=== PATIENT | female | born 1945 | race Caucasian/White ===

== ENCOUNTER 2018-10-01 10:40 | Emergency (ER) | payer MEDICARE, OTHER ==
[2018-10-01 10:46] VITALS: TEMP 98.3
--- NOTE | 2018-10-01 10:56 | ED ---
Recheck HPI - General Chief Complaint: Recheck/Abnormal Lab/Rx Stated Complaint: Chest/arm pain Time Seen by Provider: 10/01/18 10:55 Source: patient, RN notes reviewed, old records reviewed Mode of arrival: ambulatory Limitations: no limitations - History of Present Illness Initial Comments: This is a 73-year-old female to the ER for evaluation. Patient presents today for evaluation regards to abnormal lab result. Low hemoglobin. Patient also admits to having chest pain last night throughout the night that lasted for about 20-30 minutes. Patient denies any fever cough or congestion no lightheadedness dizziness or weakness MD Complaint: abnormal lab -: unknown Returns Today for: Called Because of Abnormal Lab/Test Symptoms Since Prior Visit: no new symptoms Context: called for abnormal lab result Associated Symptoms: none Treatments Prior to Arrival: other - Related Data Home Medications Medication Instructions Recorded Confirmed Aspirin 81 mg PO DAILY 03/22/15 10/01/18 Isosorbide Mononitrate ER [Imdur] 30 mg PO DAILY 10/01/18 10/01/18 Levothyroxine Sodium 112 mcg PO DAILY 10/01/18 10/01/18 Previous Rx's Medication Instructions Recorded Clopidogrel [Plavix] 75 mg PO DAILY #30 tab 03/23/15 Nitroglycerin Sl Tabs [Nitrostat] 0.4 mg SUBLINGUAL Q5M PRN #25 tab 03/23/15 Allergies Allergy/AdvReac Type Severity Reaction Status Date / Time Iodinated Contrast- Oral and Allergy Unknown Verified 10/01/18 11:12 IV Dye [Iodinated Contrast Media - IV Dye] niacin Allergy Rash/Hives Verified 10/01/18 11:12 ketorolac [From Toradol] AdvReac Vomiting Verified 10/01/18 11:12 Review of Systems ROS Statement: Those systems with pertinent positive or pertinent negative responses have been documented in the HPI. ROS Other: All systems not noted in ROS Statement are negative. Past Medical History Past Medical History: Coronary Artery Disease (CAD), Chest Pain / Angina, CVA/ TIA, Myocardial Infarction (NM) Last Myocardial Infarction Date:: unknown History of Any Multi-Drug Resistant Organisms: None Reported Past Surgical History: Coronary Bypass/CABG, Heart Catheterization, Heart Catheterization With Stent Additional Past Surgical History / Comment(s): Stents x8 cabg 1998 Past Anesthesia/Blood Transfusion Reactions: No Reported Reaction Date of Last Stent Placement:: unknown Past Psychological History: No Psychological Hx Reported Smoking Status: Current every day smoker Past Alcohol Use History: None Reported Past Drug Use History: None Reported - Past Family History Mother Family Medical History: Coronary Artery Disease (CAD), CVA/TIA Father Family Medical History: Coronary Artery Disease (CAD), CVA/TIA General Exam Limitations: no limitations General appearance: alert, in no apparent distress Head exam: Present: atraumatic, normocephalic, normal inspection Eye exam: Present: normal appearance, PERRL, EOMI. Absent: scleral icterus, conjunctival injection, periorbital swelling ENT exam: Present: normal exam, mucous membranes moist Neck exam: Present: normal inspection. Absent: tenderness, meningismus, lymphadenopathy Respiratory exam: Present: normal lung sounds bilaterally. Absent: respiratory distress, wheezes, rales, rhonchi, stridor Cardiovascular Exam: Present: regular rate, normal rhythm, normal heart sounds. Absent: systolic murmur, diastolic murmur, rubs, gallop, clicks GI/Abdominal exam: Present: soft, normal bowel sounds. Absent: distended, tenderness, guarding, rebound, rigid Extremities exam: Present: normal inspection, full ROM, normal capillary refill. Absent: tenderness, pedal edema, joint swelling, calf tenderness Back exam: Present: normal inspection Neurological exam: Present: alert, oriented X3, CN II-XII intact Psychiatric exam: Present: normal affect, normal mood Skin exam: Present: warm, dry, intact, normal color. Absent: rash Course Vital Signs 10/01/18 10/01/18 10/01/18 10:44 12:00 12:30 Temperature 98.3 F Pulse Rate 90 86 78 Respiratory 18 18 18 Rate Blood Pressure 96/65 120/72 109/66 O2 Sat by Pulse 99 Oximetry 10/01/18 10/01/18 10/01/18 13:00 14:00 14:30 Temperature Pulse Rate 78 84 82 Respiratory 18 18 18 Rate Blood Pressure 124/71 143/85 121/76 O2 Sat by Pulse Oximetry 10/01/18 10/01/18 10/01/18 15:00 15:30 16:00 Temperature Pulse Rate 82 85 75 Respiratory 18 18 18 Rate Blood Pressure 128/86 143/95 111/76 O2 Sat by Pulse Oximetry 10/01/18 10/01/18 16:22 16:30 Temperature Pulse Rate 87 Respiratory 20 Rate Blood Pressure 138/81 138/81 O2 Sat by Pulse Oximetry - Reevaluation(s) Reevaluation #1: Medical record is reviewed Reevaluation #2: Patient discussed at length regarding lab results, no need for transfusion and mildly elevated troponin with recent history of chest pain. Patient states her chest is completely resolved, risks of leaving without further cardiac evaluation is given, patient states she has had 11 heart attacks 11 stents and does not want stay in the hospital Medical Decision Making - Medical Decision Making 73 female the ER for evaluation. Patient resents today for evaluation regarding low hemoglobin. Patient also noted chest pain last night. Patient did have mildly elevated troponin here in the ER will not clinically significant was repeated with mild elevation from prior patient is continued refused to stay in the hospital at this time - Lab Data Result diagrams: 10/01/18 12:24 10/01/18 12:24 Lab Results 10/01/18 10/01/18 10/01/18 Range/Units 12:24 12:24 12:24 WBC 4.9 (3.8-10.6) k/uL RBC 2.80 L (3.80-5.40) m/uL Hgb 8.2 L (11.4-16.0) gm/dL Hct 25.9 L (34.0-46.0) % MCV 92.5 (80.0-100.0) fL MCH 29.3 (25.0-35.0) pg MCHC 31.7 (31.0-37.0) g/dL RDW 14.8 (11.5-15.5) % Plt Count 302 (150-450) k/uL Neutrophils % (Manual) 73 % Lymphocytes % (Manual) 16 % Monocytes % (Manual) 10 % Eosinophils % (Manual) 1 % Neutrophils # (Manual) 3.58 (1.3-7.7) k/uL Lymphocytes # (Manual) 0.78 L (1.0-4.8) k/uL Monocytes # (Manual) 0.49 (0-1.0) k/uL Eosinophils # (Manual) 0.05 (0-0.7) k/uL Nucleated RBCs 0 (0-0) /100 WBC Manual Slide Review Performed Hypochromasia Marked Poikilocytosis Slight Anisocytosis (manual) Present PT (9.0-12.0) sec INR (<1.2) APTT (22.0-30.0) sec Sodium 140 (137-145) mmol/L Potassium 4.1 (3.5-5.1) mmol/L Chloride 108 H (98-107) mmol/L Carbon Dioxide 25 (22-30) mmol/L Anion Gap 7 mmol/L BUN 16 (7-17) mg/dL Creatinine 0.96 (0.52-1.04) mg/dL Est GFR (CKD-EPI)AfAm 67 (>60 ml/min/1.73 sqM) Est GFR (CKD-EPI)NonAf 59 (>60 ml/min/1.73 sqM) Glucose 82 (74-99) mg/dL Calcium 9.0 (8.4-10.2) mg/dL Magnesium 2.0 (1.6-2.3) mg/dL Total Bilirubin 0.5 (0.2-1.3) mg/dL AST 22 (14-36) U/L ALT 21 (9-52) U/L Alkaline Phosphatase 91 (38-126) U/L Total Creatine Kinase 166 H (30-135) U/L CK-MB (CK-2) 1.0 (0.0-2.4) ng/mL CK-MB (CK-2) Rel Index 0.6 Troponin I 0.037 H* (0.000-0.034) ng/mL Total Protein 6.5 (6.3-8.2) g/dL Albumin 3.8 (3.5-5.0) g/dL Blood Type Blood Type Recheck Antibody Screen Antibody Identification Direct Antiglob Test Spec Expiration Date 10/01/18 10/01/18 10/01/18 Range/Units 12:24 12:24 14:50 WBC (3.8-10.6) k/uL RBC (3.80-5.40) m/uL Hgb (11.4-16.0) gm/dL Hct (34.0-46.0) % MCV (80.0-100.0) fL MCH (25.0-35.0) pg MCHC (31.0-37.0) g/dL RDW (11.5-15.5) % Plt Count (150-450) k/uL Neutrophils % (Manual) % Lymphocytes % (Manual) % Monocytes % (Manual) % Eosinophils % (Manual) % Neutrophils # (Manual) (1.3-7.7) k/uL Lymphocytes # (Manual) (1.0-4.8) k/uL Monocytes # (Manual) (0-1.0) k/uL Eosinophils # (Manual) (0-0.7) k/uL Nucleated RBCs (0-0) /100 WBC Manual Slide Review Hypochromasia Poikilocytosis Anisocytosis (manual) PT 9.8 (9.0-12.0) sec INR 0.9 (<1.2) APTT 22.1 (22.0-30.0) sec Sodium (137-145) mmol/L Potassium (3.5-5.1) mmol/L Chloride (98-107) mmol/L Carbon Dioxide (22-30) mmol/L Anion Gap mmol/L BUN (7-17) mg/dL Creatinine (0.52-1.04) mg/dL Est GFR (CKD-EPI)AfAm (>60 ml/min/1.73 sqM) Est GFR (CKD-EPI)NonAf (>60 ml/min/1.73 sqM) Glucose (74-99) mg/dL Calcium (8.4-10.2) mg/dL Magnesium (1.6-2.3) mg/dL Total Bilirubin (0.2-1.3) mg/dL AST (14-36) U/L ALT (9-52) U/L Alkaline Phosphatase (38-126) U/L Total Creatine Kinase (30-135) U/L CK-MB (CK-2) (0.0-2.4) ng/mL CK-MB (CK-2) Rel Index Troponin I 0.057 H* (0.000-0.034) ng/mL Total Protein (6.3-8.2) g/dL Albumin (3.5-5.0) g/dL Blood Type O Positive Blood Type Recheck No Antibody Screen POSITIVE Antibody Identification Clin Significant ABs Ruled Out Direct Antiglob Test Negative Spec Expiration Date 10/04/2018 - 2324 - EKG Data -: EKG Interpreted by Me (EKG shows NST rate of 79 [place] 150 QRS 88 QTc 454) Disposition Clinical Impression: Encounter for medication refill, Anemia, Chest pain Disposition: Left Against Medical Advice Condition: Good Instructions: Anemia (ED) Is patient prescribed a controlled substance at d/c from ED?: No Referrals: Nonstaff,Physician [REFERRING] - 1-2 days
[2018-10-01] MEDS ORDERED: SODIUM CHLORIDE 0.9% 1,000 ML IV STA (12:15)
[2018-10-01 13:08] LABS: Albumin 3.8 g/dL (3.5-5.0); INR 0.9 (<1.2); Partial Thromboplastin Time 22.1 sec (22.0-30.0); Potassium 4.1 mmol/L (3.5-5.1); Prothrombin Time 9.8 sec (9.0-12.0); Total Bilirubin 0.5 mg/dL (0.2-1.3); Total Protein 6.5 g/dL (6.3-8.2)
[2018-10-01 13:20] LABS: HCT 25.9 % (34.0-46.0); HGB 8.2 gm/dL (11.4-16.0); Hypochromasia Marked; MCH 29.3 pg (25.0-35.0); MCHC 31.7 g/dL (31.0-37.0); MCV 92.5 fL (80.0-100.0); Mean Platelet Volume 7.2; Platelet Count 302 k/uL (150-450); Poikilocytosis Slight; RDW 14.8 % (11.5-15.5); WBC 4.9 k/uL (3.8-10.6)
[2018-10-01 13:42] LABS: Troponin I 0.037 ng/mL (0.000-0.034)
[2018-10-01 14:24] LABS: Anisocytosis (M) Present; Eosinophils # (M) 0.05 k/uL (0-0.7); Lymphocytes # (M) 0.78 k/uL (1.0-4.8); Monocytes # (M) 0.49 k/uL (0-1.0); Neutrophils # (M) 3.58 k/uL (1.3-7.7); Neutrophils % (M) 73 %; Nucleated Red Blood Cells 0 /100 WBC (0-0); Total Cells Counted 100
[2018-10-01 16:23] VITALS: BP 138/81; PULSE 87; RESP 20
== END 2018-10-01 16:30 | disposition left against medical advice (07) ==
LOC: EC 10:40
DX: R07.9 Chest pain, unspecified (principal); D64.9 Anemia, unspecified; Z76.0 Encounter for issue of repeat prescription; R79.89 Other specified abnormal findings of blood chemistry; I25.119 Atherosclerotic heart disease of native coronary artery with unspecified angina pectoris; I25.2 Old myocardial infarction; Z86.73 Personal history of transient ischemic attack (TIA), and cerebral infarction without residual deficits; F17.200 Nicotine dependence, unspecified, uncomplicated; Z79.82 Long term (current) use of aspirin; Z79.899 Other long term (current) drug therapy; Z91.041 Radiographic dye allergy status; Z88.6 Allergy status to analgesic agent; Z88.8 Allergy status to other drugs, medicaments and biological substances; Z95.5 Presence of coronary angioplasty implant and graft; Z95.1 Presence of aortocoronary bypass graft; Z82.49 Family history of ischemic heart disease and other diseases of the circulatory system; Z53.29 Procedure and treatment not carried out because of patient's decision for other reasons
CPT/HCPCS: 36415; 80053; 82550; 82553; 83735; 84484; 85025; 85610; 85730; 86850; 86870; 86880; 86900; 86901; 93005; 96360; 96361; 99285

== ENCOUNTER → 2020-03-16 | Outpatient (CLI) | payer MEDICARE, BC ==
[2020-03-16 11:18] LABS: African American GFR (CKD) >90 (>60 ml/min/1.73 sqM); Blood Urea Nitrogen 9 mg/dL (7-17); Non-African American GFR(CKD) >90 (>60 ml/min/1.73 sqM)
--- NOTE | 2020-03-16 12:54 | CT ---
EXAMINATION TYPE: CT abdomen pelvis w con DATE OF EXAM: 03/16/2020 COMPARISON: 10/25/2011 HISTORY: Personal history of other malignancy, colon cancer CT DLP: 781 mGycm CONTRAST: CT scan of the abdomen and pelvis is performed with Oral Contrast and with IV Contrast, patient injec cecilio with 100 mL of Isovue 300. FINDINGS: LUNG BASES-: No visible nodule. No infiltrate. LIVER/GB: Cholecystectomy clips. No space occupying hepatic lesion. Biliary tree is of normal chon luz. PANCREAS: No inflammation. No distinct mass. SPLEEN: No splenic enlargement. No lesion seen. ADRENALS: No nodule. No thickening. KIDNEYS/BLADDER: No hydronephrosis. No nephrolithiasis. No distinct renal mass. Urinary bladder g rossly unremarkable. BOWEL: Normal appendix. Normal bowel caliber. No inflammation. Large fixed hiatal hernia. GENITAL ORGANS: No gross abnormality. LYMPH NODES: No greater than 1cm abdominal or pelvic lymph nodes are appreciated. AORTA: 3.5 cm infrarenal abdominal aortic aneurysm. OSSEOUS STRUCTURES: No significant abnormality is seen. OTHER: [place] fat containing ventral hernia. IMPRESSION: 1. No evidence for metastatic disease. 2. Large fixed hiatal hernia. 3. Infrarenal abdominal aortic aneurysm.
== END | disposition home or self-care (01) ==
LOC: RADCTMAIN 10:28
PROVIDERS: ATTEND Family Medicine
DX: K44.9 Diaphragmatic hernia without obstruction or gangrene (principal); I71.4 Abdominal aortic aneurysm, without rupture; R10.84 Generalized abdominal pain; D50.9 Iron deficiency anemia, unspecified; Z85.038 Personal history of other malignant neoplasm of large intestine
CPT/HCPCS: 82565; 84520; 74177; 36415; Q9967

== ENCOUNTER → 2020-03-19 | Outpatient (CLI) | payer MEDICARE ==
--- NOTE | 2020-03-19 15:54 | US ---
EXAMINATION TYPE: US thyroid st tissue head/neck DATE OF EXAM: 03/19/2020 COMPARISON: NONE CLINICAL HISTORY: E039 Hypothyroidism. Hypothyroidism GLAND SIZE: Right Lobe: 3.1 x 1.2 x 1.2 cm Overall Parenchyma: heterogenous Left Lobe: 3.1 x 0.8 x 0.9 cm Overall Parenchyma: heterogeneous Isthmus Thickness: 0.2 cm NODULES RIGHT: # of nodules measured on right: 0 LEFT: # of nodules measured on left: 0 ISTHMUS: # of nodules measured in the isthmus: 0 Bilateral neck scanned, no evidence of lymphadenopathy. IMPRESSION: 1. Normal thyroid ultrasound
== END | disposition home or self-care (01) ==
LOC: RADUSWWP 12:44
PROVIDERS: ATTEND Family Medicine
DX: E03.9 Hypothyroidism, unspecified (principal)
CPT/HCPCS: 76536

== ENCOUNTER → 2022-10-18 | Outpatient (CLI) | payer MEDICARE, BC ==
--- NOTE | 2022-10-18 16:27 | CT ---
EXAMINATION TYPE: CT abdomen pelvis wo con DATE OF EXAM: 10/18/2022 COMPARISON: 03/16/2020 INDICATION: Personal history of malignant neoplasm of colon DLP: 211.2 mGycm, Automated exposure control for dose reduction was used. CONTRAST: 0 mL of Isovue 300. Study performed without Oral Contrast TECHNIQUE: Axial images were obtained from above the diaphragm to the pubic rami in the axial plane a t 5 mm thick sections. Reconstructed images are reviewed on the computer in the coronal plane. FINDINGS: Limited CT sections are obtained the lung bases. There is a large hiatal hernia present. Emphysemato us changes are evident in the lung bases.. CT ABDOMEN: There is an anterior abdominal wall hernia containing mesenteric fat. No loops of bowel a re involved. This has an opening of 4.0 cm. Liver: Normal Spleen: Normal Pancreas: Normal Adrenal glands: The adrenal glands are normal. Gallbladder: Normal Kidneys: No masses are evident. No hydronephrosis is present. No cysts are present. Delayed images were obtained through the kidneys, which remain unremarkable. Aorta: Vascular calcification is within the aorta. There is some tortuosity of the aorta. There appe ars to be a 4.1 cm abdominal aortic aneurysm present. This begins in the infrarenal region and termin ates at the bifurcation. Dense calcifications within the proximal common iliac vessels. Inferior vena cava: Normal. CT PELVIS: Loops of bowel within the abdomen and pelvis are normal. Postsurgical changes are within the right l ower quadrant all loops. No obstruction is identified. Fecal debris appears to be throughout the colo n. Study is performed without oral contrast limiting bowel evaluation. Appendix: Not identified Urinary bladder: Normal. Genitourinary structures: Uterus and ovaries are not identified. Osseous structures: No suspicious lytic or sclerotic lesions. Degenerative disc changes are within th e lumbar spine. Scoliosis is through the degenerative lumbar spine IMPRESSIONS: 1. 1. Anterior abdominal wall hernia with an opening of 4.0 cm contains mesenteric fat in the lower mid abdomen. This extends towards the right lower quadrant. Correlate with the patient's palpable abnorma lity. This has enlarged from the comparison study 2. Postsurgical changes within the right lower quadrant bowel. No obstruction evident. 3. Large hiatal hernia. 4. Infrarenal abdominal aortic aneurysm appears enlarged from comparison.
== END | disposition home or self-care (01) ==
LOC: RADCTMAIN 11:33
PROVIDERS: ATTEND Family Medicine
DX: K43.9 Ventral hernia without obstruction or gangrene (principal); I71.43 Infrarenal abdominal aortic aneurysm, without rupture; K44.9 Diaphragmatic hernia without obstruction or gangrene; Z85.038 Personal history of other malignant neoplasm of large intestine; Z98.890 Other specified postprocedural states
CPT/HCPCS: 74176

== ENCOUNTER → 2023-05-23 | Outpatient (CLI) | payer MEDICARE, BC ==
[2023-05-23 08:48] LABS: African American GFR (CKD) >90 (>60 ml/min/1.73 sqM); Blood Urea Nitrogen 15 mg/dL (7-17); Non-African American GFR(CKD) 86 (>60 ml/min/1.73 sqM)
--- NOTE | 2023-05-23 10:03 | US ---
EXAMINATION TYPE: US duplex aorta DATE OF EXAM: 05/23/2023 COMPARISON: CT 10/18/22 CLINICAL INDICATION: Female, 77 years old with history of [id number] INFRARENAL ABDOMINAL AORTIC ANEURYSM; known infrarenal AAA TECHNIQUE: Multiple sonographic images of the abdominal aorta are obtained. FINDINGS: EXAM MEASUREMENTS: Abdominal Aorta: Proximal: 2.7 x 2.9cm Mid: 3.6 x 5.1cm Distal: 3.3 x 3.4cm EXPORT SALES ASSISTANT NOTES: Ectatic calcified abdominal aorta, 5.1cm greatest diameter noted at mid aspect. IMPRESSION: Diffusely ectatic abdominal aorta but with mid abdominal aortic aneurysm up to 5.1 cm. Unclear if thi s is a true increase in size compared to the 4.0 cm measured on 10/18/2022 or if there is slight measu rement error due to the degree of vessel tortuosity. Either reassessment with CT versus interval fol low-up ultrasound.
--- NOTE | 2023-05-23 10:08 | CT ---
EXAMINATION TYPE: CT angio chest CT DLP: 553.9 mGycm, Automated exposure control for dose reduction was used. DATE OF EXAM: 05/23/2023 9:50 AM COMPARISON: CTA chest 07/01/2016 CLINICAL INDICATION:Female, 77 years old with history of I71.20, I71.43 INFRARENAL ABDOMINAL AORTIC A NEURYS; Thoracic aortic aneurysm. TECHNIQUE/CONTRAST: CTA scan of the thorax is performed without and with IV Contrast, patient injected with 100ml mL of I sovue 370, 3-D images of the aorta were created on a separate workstation. MIP was performed. FINDINGS: Lungs/Pleura: No pleural effusion or pneumothorax. Moderate centrilobular and paraseptal emphysematou s changes. Masslike consolidation measuring 4.2 x 3.3 cm within the superior segment of the left uppe r lobe (series 506, image 54). Right upper lobe 0.8 cm pulmonary nodule (series 506, image 56). These are new from prior exam. No pneumothorax. Fat filled similar right posterior Bochdalek hernia. Airway: Large airways are patent. Heart: Heart is within normal limits for size.. No pericardial effusion. Coronary calcifications and/ or stents. Post CABG changes. Left chest wall 2-lead cardiac pacemaking device with leads terminating in the right atrium and right ventricle. Postsurgical changes in the region of the RCA. Vasculature: Atherosclerotic calcification of the aorta and its branches. The ascending thoracic aort a measures up to 4.2 cm which is marginally increase in size when previously measured 3.8 cm in 2016. No evidence of intramural hematoma. Descending thoracic aorta measures 2.8 cm. Partial visualization of known infrarenal abdominal aortic aneurysm measuring at least 3.8 cm. 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 Both visualized vertebral arter ies are extremely diminutive. Moderate stenosis at the origin of the SMA. Moderate stenosis origin of bilateral renal arteries. Celiac axis is widely patent. Mediastinum: Stable mildly prominent pretracheal space lymph nodes. Musculoskeletal: No acute osseous abnormalities. Remote surgical change to the sternum. No aggressive osseous lesion. Soft Tissues: Unremarkable. Lower neck: No significant findings. Upper Abdomen: Moderate size hiatal hernia. Post cholecystectomy changes. IMPRESSION: 1. Marginal increase in size of ascending thoracic aortic aneurysm measuring up to 4.2 cm, previously 3.8 cm and 2016. Partial visualization of known infrarenal abdominal aortic aneurysm. 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 2. New 4.2 cm masslike consolidation within the superior segment of the left lower lobe and new right upper lobe 0.8 cm pulmonary nodule. Findings are concerning for malignancy. Further evaluation with PET/CT is recommended. 3. Moderate COPD changes. 4. Moderate hiatal hernia.
== END | disposition home or self-care (01) ==
LOC: RADCTMAIN 07:54
PROVIDERS: ATTEND Family Medicine
DX: I71.43 Infrarenal abdominal aortic aneurysm, without rupture (principal); I71.21 Aneurysm of the ascending aorta, without rupture; J43.2 Centrilobular emphysema; K44.9 Diaphragmatic hernia without obstruction or gangrene; I48.0 Paroxysmal atrial fibrillation; R91.1 Solitary pulmonary nodule
CPT/HCPCS: 82565; 84520; 93979; 71275; 36415; Q9967

== ENCOUNTER → 2023-06-15 | Outpatient (CLI) | payer MEDICARE, BC ==
[2023-06-15 14:26] LABS: African American GFR (CKD) >90 (>60 ml/min/1.73 sqM); Blood Urea Nitrogen 7 mg/dL (7-17); Non-African American GFR(CKD) 84 (>60 ml/min/1.73 sqM)
--- NOTE | 2023-06-15 23:50 | CT ---
EXAMINATION: CTA ABDOMEN WITH CONTRAST DATE OF EXAMINATION: 06/15/2023. COMPARISON: 10/18/2022, 03/16/2020.. INDICATION: Infrarenal abdominal aortic aneurysm without rupture. PROCEDURE: Axial CT of the abdomen was performed with sagittal and coronal reformatted images witho ut contrast enhancement. CT dose lowering techniques were used, to include: automated exposure contro l, adjustment for patient size, and/or use of iterative reconstruction. FINDINGS: LOWER CHEST : There is a 7.8 mm nodule in the right lower lobe on series 7 image 10. This is unchang ed since the recent chest CT on 05/23/2023, however new from prior abdomen and pelvis CTs and chest CT s dating back to 07/01/2016. There is moderate centrilobular emphysematous changes otherwise noted at the visualized lung bases. ABDOMEN: Liver and Biliary system: Normal. Adrenal glands: Normal. Kidneys and ureters: There are no renal stones or hydronephrosis. No ureteral stones are present.. Spleen: Normal. Pancreas: Normal. Gallbladder: Surgically absent. Lymph nodes, Peritoneum and mesentery: There is no mesenteric or retroperitoneal lymphadenopathy. Gastrointestinal tract: There are no dilated loops of bowel or free intraperitoneal air. . There is a moderate sized sliding hiatal hernia. Aorta/IVC: Infrarenal abdominal aortic aneurysm measures up to 3.9 cm in diameter with intraluminal thrombus identified which is unchanged since the previous examination of 10/18/2022. Right common sophie ac artery stent appears patent.. IVC normal. Abdominal wall: Unchanged fat-containing ventral hernia. Urinary bladder: Normal. BONES: There are no osseous destructive lesions.. ADDITIONAL SIGNIFICANT FINDINGS: None. IMPRESSION: 1. Unchanged size of the abdominal aortic aneurysm.. 2. Unchanged fat-containing ventral hernia. 3. Unchanged moderate hiatal hernia. 4. No acute findings.
== END | disposition home or self-care (01) ==
LOC: RADCTMAIN 12:59
PROVIDERS: ATTEND Family Medicine
DX: I71.43 Infrarenal abdominal aortic aneurysm, without rupture (principal); K43.9 Ventral hernia without obstruction or gangrene; K44.9 Diaphragmatic hernia without obstruction or gangrene; I48.91 Unspecified atrial fibrillation; E05.90 Thyrotoxicosis, unspecified without thyrotoxic crisis or storm
CPT/HCPCS: 82565; 84520; 74175; 36415; Q9967

== ENCOUNTER 2023-10-15 22:26 | Emergency (ER) | payer MEDICARE, BC ==
[2023-10-15 22:47] VITALS: TEMP 97.5
[2023-10-16] MEDS ORDERED: HYDROmorphone 1 MG/ML 1 ML SYRINGE IM STA (00:39)
[2023-10-16] MEDS ORDERED: ONDANSETRON ODT 4 MG TAB PO STA (00:39)
--- NOTE | 2023-10-16 00:50 | ED ---
General Adult HPI - General Chief complaint: Back Pain/Injury Stated complaint: Back,Hip Pain Time Seen by Provider: 10/15/23 22:30 Source: patient Mode of arrival: wheelchair Limitations: no limitations - History of Present Illness Initial comments: 78-year-old female presents to the emergency department requesting a pain shot. States that she is in chronic pain. She had history of colon cancer in the past. States that this fall she had relapse of cancer and she is not pursuing any treatment options. She has chronic pain in her low back and hips. She has talked her primary care doctor about this and they placed her on Dewitt. She states that Dewitt makes her nauseated. Reports that in the past she would come in for a pain shot twice a week which mostly controlled her pain. She denies pursuing palliative care or hospice. She denies any new symptoms. States that the consistency of her back pain is the same. She has not had any new injuries. 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 - Related Data Home Medications Medication Instructions Recorded Confirmed Aspirin 81 mg PO DAILY 03/22/15 10/01/18 Isosorbide Mononitrate ER [Imdur] 30 mg PO DAILY 10/01/18 10/01/18 Levothyroxine Sodium 112 mcg PO DAILY 10/01/18 10/01/18 Previous Rx's Medication Instructions Recorded Clopidogrel [Plavix] 75 mg PO DAILY #30 tab 03/23/15 Nitroglycerin Sl Tabs [Nitrostat] 0.4 mg SUBLINGUAL Q5M PRN #25 tab 03/23/15 Allergies Allergy/AdvReac Type Severity Reaction Status Date / Time niacin Allergy Rash/Hives Verified 10/15/23 22:30 ketorolac [From Toradol] AdvReac Vomiting Verified 10/15/23 22:30 Review of Systems ROS Statement: Those systems with pertinent positive or pertinent negative responses have been documented in the HPI. ROS Other: All systems not noted in ROS Statement are negative. Past Medical History Past Medical History: Coronary Artery Disease (CAD), Chest Pain / Angina, CVA/TIA, Myocardial Infarction ([place]) Last Myocardial Infarction Date:: unknown History of Any Multi-Drug Resistant Organisms: None Reported Past Surgical History: Coronary Bypass/CABG, Heart Catheterization, Heart Catheterization With Stent Additional Past Surgical History / Comment(s): Stents x8 cabg 1998 Past Anesthesia/Blood Transfusion Reactions: No Reported Reaction Date of Last Stent Placement:: unknown Past Psychological History: No Psychological Hx Reported Smoking Status: Current every day smoker Past Alcohol Use History: None Reported Past Drug Use History: None Reported - Past Family History Mother Family Medical History: Coronary Artery Disease (CAD), CVA/TIA Father Family Medical History: Coronary Artery Disease (CAD), CVA/TIA General Exam Limitations: no limitations General appearance: alert, in no apparent distress Head exam: Present: atraumatic, normocephalic, normal inspection Eye exam: Present: normal appearance, PERRL, EOMI. Absent: scleral icterus, conjunctival injection, periorbital swelling ENT exam: Present: normal exam, mucous membranes moist Neck exam: Present: normal inspection. Absent: tenderness, meningismus, lymphadenopathy Respiratory exam: Present: normal lung sounds bilaterally. Absent: respiratory distress, wheezes, rales, rhonchi, stridor Cardiovascular Exam: Present: normal rhythm, tachycardia, normal heart sounds. Absent: systolic murmur, diastolic murmur, rubs, gallop, clicks GI/Abdominal exam: Present: soft, normal bowel sounds. Absent: distended, tenderness, guarding, rebound, rigid Extremities exam: Present: normal inspection, full ROM, normal capillary refill. Absent: tenderness, pedal edema, joint swelling, calf tenderness Back exam: Present: normal inspection, paraspinal tenderness (Lumbar region) Neurological exam: Present: alert, oriented X3, CN II-XII intact Psychiatric exam: Present: normal affect, normal mood Skin exam: Present: warm, dry, intact, normal color. Absent: rash Course Vital Signs 10/15/23 10/16/23 22:27 01:03 Temperature 97.5 F L Pulse Rate 116 H 110 H Respiratory 18 17 Rate Blood Pressure 128/72 126/70 O2 Sat by Pulse 96 98 Oximetry Medical Decision Making - Medical Decision Making Was pt. sent in by a medical professional or institution (, PA, APPLICATIONS ANALYST, urgent care, hospital, or [place] health care facility...) When possible be specific @ -No Did you speak to anyone other than the patient for history (EMS, parent, family, police, friend...)? What history was obtained from this source @ -No Did you review nursing and triage notes (agree or disagree)? Why? @ -I reviewed and agree with nursing and triage notes Were old charts reviewed (outside hosp., previous admission, EMS record, old EKG, old radiological studies, urgent care reports/EKG's, [place] health care facility records)? Report findings @ -No old charts were reviewed Differential Diagnosis (chest pain, altered mental status, abdominal pain women, abdominal pain men, vaginal bleeding, weakness, fever, dyspnea, syncope, headache, dizziness, GI bleed, back pain, seizure, CVA, palpatations, mental health, musculoskeletal)? @ -Differential Back Pain: Strain, zoster, cauda equina syndrome, epidural abscess, vertebral osteomyelitis, discitis, fracture, subluxation, disc herniation, DJD, spinal stenosis, dissection, AAA, pancreatitis, peptic ulcer disease, pyelonephritis, kidney stone, this is not meant to be an all-inclusive list. EKG interpreted by me (3pts min.). @ -Not done X-rays interpreted by me (1pt min.). @ -None done CT interpreted by me (1pt min.). @ -None done U/S interpreted by me (1pt. min.). @ -None done What testing was considered but not performed or refused? (CT, X-rays, U/S, labs)? Why? @ -X-ray imaging however the patient has had significant workup for her pain and she is refusing any imaging at this time What meds were considered but not given or refused? Why? @ -None Did you discuss the management of the patient with other professionals (professionals i.e. , PA, APPLICATIONS ANALYST, lab, RT, psych nurse, rn social work, tissue specialist, teacher, earth science technical officer, immigration case worker)? Give summary @ -No Was smoking cessation discussed for >3mins.? @ -No Was critical care preformed (if so, how long)? @ -No Were there social determinants of health that impacted care today? How? (Homelessness, low income, unemployed, alcoholism, drug addiction, transportation, low edu. Level, literacy, decrease access to med. care, longterm, rehab)? @ -No Was there de-escalation of care discussed even if they declined (Discuss DNR or withdrawal of care, Hospice)? DNR status @ -Yes, patient does have interested in hospice and palliative care What co-morbidities impacted this encounter? (DM, HTN, Smoking, COPD, CAD, Cancer, CVA, ARF, Chemo, Hep., AIDS, mental health diagnosis, sleep apnea, morbid obesity)? @ -Lung cancer Was patient admitted / discharged? Hospital course, mention meds given and route, prescriptions, significant lab abnormalities, going to OR and other pertinent info. @ -On arrival patient was placed into room 26. Thorough history and physical exam was performed. I did offer imaging however the patient states that she has had several imaging studies performed. I did speak with her in regards to palliative care. He recommended that she talked her primary care doctor about a referral to palliative care or hospice. Patient was given an oral Zofran and 1 mg of IM Dilaudid. Patient will be discharged home at this time and instructed to return for any new or worsening symptoms. Patient discharged in stable condition Undiagnosed new problem with uncertain prognosis? @ -No Drug Therapy requiring intensive monitoring for toxicity (Heparin, Nitro, Insulin, Cardizem)? @ -No Were any procedures done? @ -No Diagnosis/symptom? @ -Acute exacerbation of chronic back pain, lung cancer Acute, or Chronic, or Acute on Chronic? @ -Acute Uncomplicated (without systemic symptoms) or Complicated (systemic symptoms)? @ -Complicated Side effects of treatment? @ -No Exacerbation, Progression, or Severe Exacerbation? @ -No Poses a threat to life or bodily function? How? (Chest pain, [place], [place], pneumonia, PE, COPD, DKA, ARF, appy, cholecystitis, CVA, Diverticulitis, Homicidal, Suicidal, threat to staff... and all critical care pts) @ -No Disposition Clinical Impression: Chronic back pain Disposition: HOME SELF-CARE Condition: Stable Instructions (If sedation given, give patient instructions): Chronic Back Pain (DC) Additional Instructions: Please ask your primary care doctor for recommendations for a palliative care doctor or hospice information. Is patient prescribed a controlled substance at d/c from ED?: No Referrals: Edmond Coughlin DO [Doctor of Osteopathic Medicine] - 1-2 days Hospice,[facility] [NON-STAFF] - 1-2 days Hospice,[facility] [REFERRING] - 1-2 days Hospice,[facility] [NON-STAFF] - 1-2 days Hospice,[facility] [NON-STAFF] - 1-2 days Hospice,[facility] [NON-STAFF] - 1-2 days Hospice,[facility] [NON-STAFF] - 1-2 days Time of Disposition: 00:50
[2023-10-16 01:22] VITALS: BP 126/70; PULSE 110; RESP 17
== END 2023-10-16 01:04 | disposition home or self-care (01) ==
LOC: EC 22:26 → SUPCPDRO 22:26 → EC 10-16 01:04
DX: G89.29 Other chronic pain (principal); M54.9 Dorsalgia, unspecified; I25.10 Atherosclerotic heart disease of native coronary artery without angina pectoris; I25.2 Old myocardial infarction; F17.200 Nicotine dependence, unspecified, uncomplicated; Z79.82 Long term (current) use of aspirin; Z88.6 Allergy status to analgesic agent; Z88.8 Allergy status to other drugs, medicaments and biological substances
CPT/HCPCS: 99283; 96372; J1170

== ENCOUNTER → 2023-11-01 | Outpatient (CLI) | payer MEDICARE, BC ==
[2023-11-01 08:55] VITALS: BP 96/68; PULSE 102; RESP 14; TEMP 97.1
--- NOTE | 2023-11-01 09:12 | XR ---
EXAMINATION TYPE: XR lumbar spine 2 or 3V DATE OF EXAM: 11/01/2023 CLINICAL HISTORY: pain TECHNIQUE: Three views of the lumbar spine are submitted. COMPARISON: None. FINDINGS: There are 5 lumbar type vertebral bodies identified. The lumbar spine shows satisfactory alignment w ithout evidence of acute fracture or dislocation. Vertebral body heights are within normal limits. Severe degenerative narrowing L4-5 and L5-S1. Facet joint arthropathy. Scattered ventral spondylosis. Abdominal aortic aneurysm with maximal transverse dimension of 5.2 cm. Right common iliac stent. IMPRESSION: No acute fracture or dislocation is seen in the lumbar spine. ICD 10 NO FRACTURE, INITIAL EVALUATION
--- NOTE | 2023-11-01 14:30 | P.PAINPG ---
Objective - Vital Signs Vital signs: Intake & Output 10/31/23 11/01/23 11/01/23 18:59 06:59 18:59 Weight 49.895 kg PQRS Measure Charge Sheet Comment: HISTORY OF PRESENT ILLNESS: A 78 yr old female w daughter at side as a referral from Cindy Farris [facility] presents today w severe and chronic LBP x 5 yrs secondary to DDD, spondylosis and facet arthropathy without myelopathy for evaluation. Pt states pain level is provoked at 10 /10 in intensity, constant, localized in the lumbar spine, predominantly axial, sharp in character w occasional shooting pain towards aaron hips and BLEs. Pain is provoked by climbing steps. Pain is alleviated by PT years ago, heat, topical Biofreeze gel, use of a wheelchair for ambulatory assistance, repositioning and rest. Oswestry axial pain score at 34. Per daughter at side, pt gets "angry" while on Hydrocodone. Per pt, Tylenol #3 and #4s "don' t work" and Tramadol makes her dry heave. PMH: OA, CAD, aFib, Angina, CVA, [place] PSH: Coronary Bypass/CABG, Heart Catheterization, Heart Catheterization With Stent x8 (1998), Hx of Colon CA SH: Daily tobacco use, No ETOH abuse, No illicit drug use FH: Mo- CVA. Fa- CVA All: See list Meds: See list REVIEW OF ORGAN SYSTEMS: CONSTITUTIONAL: No fevers or chills. No recent weight loss. NEUROLOGICAL: + numbness and tingling along the distal extremities. No seizure disorders or headaches. MUSCULOSKELETAL: + pain PSYCHIATRIC: Denies current depression or suicidal thoughts. Physical Examinations : Constitutional : Cooperative , not in acute distress . Neurologic : Cranial nerve II to XII intact. No focal neurological deficits. Psychiatric : alert & oriented x 3. Matching mood & appropriate affect. Judgment & insight intact. Musculoskeletal : Cervical Spine Motor strength in the deltoid and biceps: Normal right side. Normal Left side Motor strength biceps and the wrist extensors: Normal right side . Normal left side Motor strength in the triceps muscle: Normal right side. Normal left side Deep tendon reflexes: Normal at the biceps. Normal at Brachioradialis. Normal at triceps Vertebral body tenderness to deep palpation over Cervical facet loading test: positive bilaterally Spurling test: positive bilaterally Neck distraction test: positive bilaterally Alda sign: positive bilaterally Lumbar spine Motor strength lower extremities ,thigh and legs 5/5 Right side , 5/5 Left side Deep tendon reflexes : Normal Knee Jerk. Normal Ankle Jerk Vertebral body tenderness over Cohen Test positive Lumbar facet Loading Test: positive Right / positive Left Range of motion of the lumbar spine Flexion 30 degrees, extension 10 degrees Straight Leg Raise test: Left/ Right positive at degrees Shonda test: positive right / positive left. Severe tenderness over the Sacroiliac joint on the Right / Left sides Gaenslen test: positive bilaterally Seated flexion test: positive bilaterally. Sacral spine : Severe tenderness over the Sacroiliac joint: right side / left side Range of motion: Flexion of the lumbar spine <60 degrees Range of motion: Extension of the lumbar spine <20 degrees Gaenslen's Test positive Shonda test: positive right side / left side Thigh Thrust Test Sacral Thrust Test Imaging: None on file Assessment/ Plan : Lumbar DDD Recommendation of lumbar x ray and medication management M51.36. Risks, benefits discussed and patient verbalized understanding. Admits to anti- coagulant use or medical history of diabetes. Diclofenac gel 3% and Lidoderm 5% w 1 RF. Use, side effects, adverse reactions, safe storage discussed. All questions answered. I have spent greater than 30 minutes on patient care today. Dr Bocanegra was available by phone for the evaluation of this patient. The time was used to review the medical records including relevant urine studies and Prescription history (MAPs), review of the available imaging, evaluation and examination of the patient, coordination of care with the medical staff and if applicable referring physicians, as well as creation of the medical record PQRS Narrative: Smoking Status Current every day smoker Home Medications: Ambulatory Orders Clopidogrel [Plavix] 75 mg PO DAILY #30 tab 03/23/15 Nitroglycerin Sl Tabs [Nitrostat] 0.4 mg SUBLINGUAL Q5M PRN #25 tab 03/23/15 Isosorbide Mononitrate ER [Imdur] 30 mg PO DAILY 10/01/18 Levothyroxine Sodium 112 mcg PO DAILY 10/01/18 Diclofenac Sodium Gel [Voltaren 1% Gel] 100 gm TOPICAL BID 30 Days #1 each 11/01/23 Lidocaine 5% Patch [Lidoderm] 1 each TP DAILY 30 Days #30 patch 11/01/23 Controlled Substance Measures - Controlled Substance Measures Is patient prescribed a controlled substance at discharge?: No
== END ==
LOC: PNWHC3 08:00
PROVIDERS: ATTEND Specialist
DX: M51.36 Other intervertebral disc degeneration, lumbar region (principal); R91.8 Other nonspecific abnormal finding of lung field; F17.200 Nicotine dependence, unspecified, uncomplicated; Z85.038 Personal history of other malignant neoplasm of large intestine; Z88.8 Allergy status to other drugs, medicaments and biological substances
CPT/HCPCS: 72100; G0463; 99211

== ENCOUNTER 2024-03-23 08:36 | Emergency (ER) | payer MEDICARE, BC ==
[2024-03-23 08:47] VITALS: RESP 16
[2024-03-23] MEDS: HYDROmorphone 1 MG/ML 1 ML SYRINGE IM STA (09:24)
--- NOTE | 2024-03-23 10:03 | ED ---
Back Pain HPI - General Chief Complaint: Back Pain/Injury Stated Complaint: L side body pain Time Seen by Provider: 03/23/24 10:02 Source: patient, RN notes reviewed Limitations: no limitations - History of Present Illness Initial Comments: 78-year-old female with a past medical history significant of colon cancer presented to the ER with a chief complaint of left side pain. She states she has been taking outpatient Fleischmanns 7.5 for pain relief. She states she ran out of her medications and has been unable to follow-up with her primary care physician as he is currently out of town. She states last night she started to experience left side pain which is chronic in nature. She denies any new traumas or injuries. She denies any fevers, chills, chest pain, shortness of breath, urinary complaints, constipation/diarrhea or peripheral edema. - Related Data Home Medications Medication Instructions Recorded Confirmed Isosorbide Mononitrate ER [Imdur] 30 mg PO DAILY 10/01/18 11/01/23 Levothyroxine Sodium 112 mcg PO DAILY 10/01/18 11/01/23 Previous Rx's Medication Instructions Recorded Clopidogrel [Plavix] 75 mg PO DAILY #30 tab 03/23/15 Nitroglycerin Sl Tabs [Nitrostat] 0.4 mg SUBLINGUAL Q5M PRN #25 tab 03/23/15 Diclofenac Sodium Gel [Voltaren 1% 100 gm TOPICAL BID 30 Days #1 each 11/01/23 Gel] Lidocaine 5% Patch [Lidoderm] 1 each TP DAILY 30 Days #30 patch 11/01/23 Allergies Allergy/AdvReac Type Severity Reaction Status Date / Time niacin Allergy Rash/Hives Verified 03/23/24 08:45 ketorolac [From Toradol] AdvReac Vomiting Verified 03/23/24 08:45 Review of Systems ROS Statement: Those systems with pertinent positive or pertinent negative responses have been documented in the HPI. ROS Other: All systems not noted in ROS Statement are negative. Past Medical History Past Medical History: Coronary Artery Disease (CAD), Cancer, Chest Pain / Angina, CVA/TIA, Myocardial Infarction ([place]) Additional Past Medical History / Comment(s): lung /colon cancer with mets Last Myocardial Infarction Date:: unknown History of Any Multi-Drug Resistant Organisms: None Reported Past Surgical History: Coronary Bypass/CABG, Heart Catheterization, Heart Catheterization With Stent Additional Past Surgical History / Comment(s): Stents x8 cabg 1998 Past Anesthesia/Blood Transfusion Reactions: No Reported Reaction Date of Last Stent Placement:: unknown Past Psychological History: No Psychological Hx Reported Smoking Status: Current every day smoker Past Alcohol Use History: None Reported Past Drug Use History: None Reported - Past Family History Mother Family Medical History: Coronary Artery Disease (CAD), CVA/TIA Father Family Medical History: Coronary Artery Disease (CAD), CVA/TIA General Exam Limitations: no limitations General appearance: alert, in no apparent distress Respiratory exam: Present: normal lung sounds bilaterally. Absent: respiratory distress, wheezes, rales, rhonchi, stridor Cardiovascular Exam: Present: regular rate, normal rhythm, normal heart sounds. Absent: systolic murmur, diastolic murmur, rubs, gallop, clicks GI/Abdominal exam: Present: soft, normal bowel sounds. Absent: distended, tenderness, guarding, rebound, rigid Skin exam: Present: warm, dry, intact, normal color. Absent: rash Course Vital Signs 03/23/24 03/23/24 08:45 10:28 Temperature 98 F 98.1 F Pulse Rate 85 68 Respiratory 16 16 Rate Blood Pressure 106/69 114/72 O2 Sat by Pulse 99 98 Oximetry Medical Decision Making - Medical Decision Making Was pt. sent in by a medical professional or institution (DIOGO Byrd, RECESSING MACHINE OPERATOR, urgent care, hospital, or shelter...) When possible be specific @ -No Did you speak to anyone other than the patient for history (EMS, parent, family, police, friend...)? What history was obtained from this source @ -No Did you review nursing and triage notes (agree or disagree)? Why? @ -I reviewed and agree with nursing and triage notes Were old charts reviewed (outside hosp., previous admission, EMS record, old EKG, old radiological studies, urgent care reports/EKG's, shelter records)? Report findings @ -No old charts were reviewed Differential Diagnosis (chest pain, altered mental status, abdominal pain women, abdominal pain men, vaginal bleeding, weakness, fever, dyspnea, syncope, headache, dizziness, GI bleed, back pain, seizure, CVA, palpatations, mental health, musculoskeletal)? @ -Differential Back Pain: Strain, zoster, cauda equina syndrome, epidural abscess, vertebral osteomyelitis, discitis, fracture, subluxation, disc herniation, DJD, spinal stenosis, dissection, AAA, pancreatitis, peptic ulcer disease, pyelonephritis, kidney stone, this is not meant to be an all-inclusive list. EKG interpreted by me (3pts min.). @ -None X-rays interpreted by me (1pt min.). @ -None done CT interpreted by me (1pt min.). @ -None done U/S interpreted by me (1pt. min.). @ -None done What testing was considered but not performed or refused? (CT, X-rays, U/S, labs)? Why? @ -Imaging refused by patient as she reports that she has had an extensive workup outpatient previously. What meds were considered but not given or refused? Why? @ -None Did you discuss the management of the patient with other professionals (professionals i.e. , PA, RECESSING MACHINE OPERATOR, lab, RT, psych nurse, secondary social studies teacher, cross cut saw operator, teacher, global safety officer, nurse case management)? Give summary @ -No Was smoking cessation discussed for >3mins.? @ -No Was critical care preformed (if so, how long)? @ -No Were there social determinants of health that impacted care today? How? (Homelessness, low income, unemployed, alcoholism, drug addiction, transportation, low edu. Level, literacy, decrease access to med. care, [facility], rehab)? @ -No Was there de-escalation of care discussed even if they declined (Discuss DNR or withdrawal of care, Hospice)? DNR status @ -No What co-morbidities impacted this encounter? (DM, HTN, Smoking, COPD, CAD, Cancer, CVA, ARF, Chemo, Hep., AIDS, mental health diagnosis, sleep apnea, morbid obesity)? @ -Cancer Was patient admitted / discharged? Hospital course, mention meds given and route, prescriptions, significant lab abnormalities, going to OR and other pertinent info. @ -Discharged. 78 year old female with a past medical history of colon cancer presenting to the ER with a chief complaint of pain. History and physical exam completed. Vitals stable. Patient refusing imaging at this time as she reports she had extensive outpatient workup previously. Pain believed to be chronic in nature patient received IM Dilaudid for pain control, with improvement. Patient advised to follow-up with primary care physician in the next 1 to 2 days. Return parameters discussed. Patient agreeable for discharge at this time. Discharged in stable condition. Patient verbally expressed understanding agree with care plan. Case discussed with ED attending Dr. Dover Undiagnosed new problem with uncertain prognosis? @ -No Drug Therapy requiring intensive monitoring for toxicity (Heparin, Nitro, Insulin, Cardizem)? @ -No Were any procedures done? @ -No Diagnosis/symptom? @ -Chronic pain/cancer Acute, or Chronic, or Acute on Chronic? @ -Chronic Uncomplicated (without systemic symptoms) or Complicated (systemic symptoms)? @ -Complicated Side effects of treatment? @ -No Exacerbation, Progression, or Severe Exacerbation? @ -No Poses a threat to life or bodily function? How? (Chest pain, [place], [place], pneumonia, PE, COPD, DKA, ARF, appy, cholecystitis, CVA, Diverticulitis, Homicidal, Suicidal, threat to staff... and all critical care pts) @ -Yes, cancer is life-threatening. Disposition Clinical Impression: Chronic pain, Colon cancer Disposition: HOME SELF-CARE Condition: Stable Additional Instructions: Follow-up with PCP. Return to the ER for any new or worsening symptoms. Is patient prescribed a controlled substance at d/c from ED?: No Referrals: Edmond Coughlin DO [Primary Care Provider] - 1-2 days Time of Disposition: 10:03
[2024-03-23 10:29] VITALS: BP 114/72; PULSE 68; TEMP 98.1
== END 2024-03-23 10:28 | disposition home or self-care (01) ==
LOC: EC 08:36
DX: G89.29 Other chronic pain (principal); C18.9 Malignant neoplasm of colon, unspecified; F17.200 Nicotine dependence, unspecified, uncomplicated; Z88.8 Allergy status to other drugs, medicaments and biological substances
CPT/HCPCS: 99283; 96372; J1170

== ENCOUNTER 2024-07-18 13:48 | Emergency (ER) | payer MEDICARE, BC ==
--- NOTE | 2024-07-18 14:22 | ED ---
SOB HPI - General Source: patient, RN notes reviewed Mode of arrival: wheelchair Limitations: no limitations <Marion Silverman - Last Filed: 07/18/24 14:21> <Rio Julian - Last Filed: 07/18/24 18:55> - General Chief Complaint: Shortness of Breath Stated Complaint: ROHITH Time Seen by Provider: 07/18/24 14:01 - History of Present Illness Initial Comments: [id number] female with a history of metastatic lung cancer presented emergency for chief complaint of worsening shortness of breath. Patient states that she has a history of fluid around her lungs which is led to subsequent thoracentesis. (Marion Silverman) This is an 79-year-old female who states she has metastatic lung cancer. Patient states he been having shortness of breath on and off for a month. Patient states she is also having chest heaviness on and off for a month. Patient states at previous visit she had fluid on her lungs and had it drained to the emergency department. She states she had 3 L taken off and she feels as THE problem again today. Patient denies any fever chills. Patient denies any back pain. Patient has abdominal pain patient has any nausea vomiting. (Rio Julian) - Related Data Home Medications Medication Instructions Recorded Confirmed Isosorbide Mononitrate ER [Imdur] 30 mg PO DAILY 10/01/18 11/01/23 Levothyroxine Sodium 112 mcg PO DAILY 10/01/18 11/01/23 Previous Rx's Medication Instructions Recorded Clopidogrel [Plavix] 75 mg PO DAILY #30 tab 03/23/15 Nitroglycerin Sl Tabs [Nitrostat] 0.4 mg SUBLINGUAL Q5M PRN #25 tab 03/23/15 Diclofenac Sodium Gel [Voltaren 1% 100 gm TOPICAL BID 30 Days #1 each 11/01/23 Gel] Lidocaine 5% Patch [Lidoderm] 1 each TP DAILY 30 Days #30 patch 11/01/23 Azithromycin [Zithromax Tri-Khadar (3 500 mg PO DAILY 3 Days #3 tab 07/18/24 tabs)] Allergies Allergy/AdvReac Type Severity Reaction Status Date / Time niacin Allergy Rash/Hives Verified 07/18/24 14:04 ketorolac [From Toradol] AdvReac Vomiting Verified 07/18/24 14:04 Review of Systems ROS Other: All systems not noted in ROS Statement are negative. <Marion Silverman - Last Filed: 07/18/24 14:21> ROS Other: All systems not noted in ROS Statement are negative. <Rio Julian - Last Filed: 07/18/24 18:55> ROS Statement: Those systems with pertinent positive or pertinent negative responses have been documented in the HPI. Past Medical History Past Medical History: Coronary Artery Disease (CAD), Cancer, Chest Pain / Angina, CVA/TIA, Myocardial Infarction ([place]) Additional Past Medical History / Comment(s): lung /colon cancer with mets Last Myocardial Infarction Date:: unknown History of Any Multi-Drug Resistant Organisms: None Reported Past Surgical History: Coronary Bypass/CABG, Heart Catheterization, Heart Catheterization With Stent Additional Past Surgical History / Comment(s): Stents x8 cabg 1998, thoracentesis Past Anesthesia/Blood Transfusion Reactions: No Reported Reaction Date of Last Stent Placement:: unknown Past Psychological History: No Psychological Hx Reported Smoking Status: Light tobacco smoker Past Alcohol Use History: None Reported Past Drug Use History: None Reported - Past Family History Mother Family Medical History: Coronary Artery Disease (CAD), CVA/TIA Father Family Medical History: Coronary Artery Disease (CAD), CVA/TIA <Marion Silverman - Last Filed: 07/18/24 14:21> General Exam Limitations: no limitations <Marion Silverman - Last Filed: 07/18/24 14:21> <Rio Julian - Last Filed: 07/18/24 18:55> - General Exam Comments Initial Comments: Visual Physical Exam Vital signs reviewed General: Well-appearing, nontoxic, no acute distress. Head: Normocephalic, atraumatic Eyes: PERRLA, EOMI ENT: Airway patent Chest: Nonlabored breathing Skin: No visual rash, normal skin tone Neuro: Alert and oriented 3 Musculoskeletal: No gross abnormalities (Marion Silverman) GENERAL: Patient is well-developed and well-nourished. Patient is nontoxic and well- hydrated and is in mild distress. ENT: Neck is soft and supple. No significant lymphadenopathy is noted. Oropharynx is clear. Moist mucous membranes. Neck has full range of motion without eliciting any pain. EYES: The sclera were anicteric and conjunctiva were pink and moist. Extraocular movements were intact and pupils were equal round and reactive to light. Eyelids were unremarkable. PULMONARY: Diminished breath sounds on the right CARDIOVASCULAR: There is a regular rate and rhythm without any murmurs gallops or rubs. ABDOMEN: Soft and nontender with normal bowel sounds. SKIN: Skin is clear with no lesions or rashes and otherwise unremarkable. NEUROLOGIC: Patient is alert and oriented x3. Cranial nerves II through XII are grossly intact. Motor and sensory are also intact. Normal speech, volume and content. Symmetrical smile. MUSCULOSKELETAL: Normal extremities with adequate strength and full range of motion. No lower extremity swelling or edema. No calf tenderness. LYMPHATICS: No significant lymphadenopathy is noted PSYCHIATRIC: Normal psychiatric evaluation. (Rio Julian) Course Vital Signs 07/18/24 07/18/24 07/18/24 14:04 15:55 16:58 Temperature 98.2 F 98.4 F Pulse Rate 84 75 70 Respiratory 18 18 16 Rate Blood Pressure 119/81 130/94 122/88 O2 Sat by Pulse 91 L 98 95 Oximetry 07/18/24 18:15 Temperature Pulse Rate 71 Respiratory 18 Rate Blood Pressure 148/79 O2 Sat by Pulse 96 Oximetry Medical Decision Making <Marion Silverman - Last Filed: 07/18/24 14:21> - Lab Data Result diagrams: 07/18/24 14:36 07/18/24 14:36 <Rio Julian - Last Filed: 07/18/24 18:55> - Medical Decision Making I completed the quick note portion of this chart signed Marion Silverman PA-C (Marion Silverman) EKG is interpreted by myself. EKG shows a paced rhythm at 83 bpm. No 132 QRS 106 QT interval 367 QTc is 406. Patient's EKG shows no ST segment elevation Was pt. sent in by a medical professional or institution ([facility], CARPET CLEANING TECHNICIAN, urgent care, hospital, or halfway...) When possible be specific @ -No Did you speak to anyone other than the patient for history (EMS, parent, family, police, friend...)? What history was obtained from this source @ -No Did you review nursing and triage notes (agree or disagree)? Why? @ -I reviewed and agree with nursing and triage notes Were old charts reviewed (outside hosp., previous admission, EMS record, old EKG, old radiological studies, urgent care reports/EKG's, halfway records)? Report findings @ -No old charts were reviewed Differential Diagnosis? @ -Differential Dyspnea: Coronary syndrome, arrhythmia, tamponade, asthma, COPD, pulmonary embolism, pneumonia, pneumothorax, pulmonary effusion, anaphylaxis, diabetic ketoacidosis, flailed chest, pulmonary contusion, diaphragmatic rupture, anemia, neuromuscular, this is not meant to be an all-inclusive list. EKG interpreted by me (3pts min.). @ -As above X-rays interpreted by me (1pt min.). @ -X-ray shows potential masses in both lungs CT interpreted by me (1pt min.). @ -CT scan showed enlarging masses in the lungs as well as an area suspicious for pneumonia U/S interpreted by me (1pt. min.). @ -None done What testing was considered but not performed or refused? (CT, X-rays, U/S, labs)? Why? @ -None What meds were considered but not given or refused? Why? @ -None Did you discuss the management of the patient with other professionals (professionals i.e. , PA, CARPET CLEANING TECHNICIAN, lab, RT, psych nurse, social sciences professor, refuge manager, teacher, title officer, case managers)? Give summary @ -No Was smoking cessation discussed for >3mins.? @ -No Was critical care preformed (if so, how long)? @ -No Were there social determinants of health that impacted care today? How? (Homelessness, low income, unemployed, alcoholism, drug addiction, transportation, low edu. Level, literacy, decrease access to med. care, longterm, rehab)? @ -No Was there de-escalation of care discussed even if they declined (Discuss DNR or withdrawal of care, Hospice)? DNR status @ -No What co-morbidities impacted this encounter? (DM, HTN, Smoking, COPD, CAD, Cancer, CVA, ARF, Chemo, Hep., AIDS, mental health diagnosis, sleep apnea, morbid obesity)? @ -None Was patient admitted / discharged? Hospital course, mention meds given and route, prescriptions, significant lab abnormalities, going to OR and other pertinent info. @ -I spoke with the patient about staying in to be further evaluated to get IV antibiotic she refused she wanted to go home son was in [facility]. Patient was given Rocephin 2 g in the emergency department and Zithromax and will be sent home on Zithromax Undiagnosed new problem with uncertain prognosis? @ -No Drug Therapy requiring intensive monitoring for toxicity (Heparin, Nitro, Insulin, Cardizem)? @ -No Were any procedures done? @ -No Diagnosis/symptom? @ -Pneumonia Acute, or Chronic, or Acute on Chronic? @ -Acute Uncomplicated (without systemic symptoms) or Complicated (systemic symptoms)? @ -Complicated Side effects of treatment? @ -No Exacerbation, Progression, or Severe Exacerbation? @ -No Poses a threat to life or bodily function? How? (Chest pain, [place], [place], pneumonia, PE, COPD, DKA, ARF, appy, cholecystitis, CVA, Diverticulitis, Homicidal, Suicidal, threat to staff... and all critical care pts) @ -No (Rio Julian) - Lab Data Lab Results 07/18/24 07/18/24 07/18/24 Range/Units 14:36 14:36 14:36 WBC 5.6 (3.8-10.6) k/uL RBC 4.49 (3.80-5.40) m/uL Hgb 13.2 (11.4-16.0) gm/dL Hct 43.0 (34.0-46.0) % MCV 95.7 (80.0-100.0) fL MCH 29.3 (25.0-35.0) pg MCHC 30.7 L (31.0-37.0) g/dL RDW 14.9 (11.5-15.5) % Plt Count 307 (150-450) k/uL MPV 7.7 Neutrophils % 72 % Lymphocytes % 17 % Monocytes % 5 % Eosinophils % 2 % Basophils % 1 % Neutrophils # 4.1 (1.3-7.7) k/uL Lymphocytes # 1.0 (1.0-4.8) k/uL Monocytes # 0.3 (0-1.0) k/uL Eosinophils # 0.1 (0-0.7) k/uL Basophils # 0.0 (0-0.2) k/uL Hypochromasia Slight PT 10.0 (10.0-12.5) sec INR 0.9 (<1.2) APTT 22.2 (22.0-30.0) sec Sodium 137 (137-145) mmol/L Potassium 4.6 (3.5-5.1) mmol/L Chloride 104 (98-107) mmol/L Carbon Dioxide 25 (22-30) mmol/L Anion Gap 8 mmol/L BUN 12 (7-17) mg/dL Creatinine 0.60 (0.52-1.04) mg/dL Est GFR (CKD-EPI)AfAm >90 (>60 ml/min/1.73 sqM) Est GFR (CKD-EPI)NonAf 87 (>60 ml/min/1.73 sqM) Glucose 92 (74-99) mg/dL Calcium 8.8 (8.4-10.2) mg/dL Magnesium 2.2 (1.6-2.3) mg/dL Total Bilirubin 0.6 (0.2-1.3) mg/dL AST 25 (14-36) U/L ALT 10 (4-34) U/L Alkaline Phosphatase 110 (38-126) U/L Troponin I (0.000-0.034) ng/mL NT-Pro-B Natriuret Pep 839 pg/mL Total Protein 7.3 (6.3-8.2) g/dL Albumin 4.1 (3.5-5.0) g/dL 07/18/24 Range/Units 14:36 WBC (3.8-10.6) k/uL RBC (3.80-5.40) m/uL Hgb (11.4-16.0) gm/dL Hct (34.0-46.0) % MCV (80.0-100.0) fL MCH (25.0-35.0) pg MCHC (31.0-37.0) g/dL RDW (11.5-15.5) % Plt Count (150-450) k/uL MPV Neutrophils % % Lymphocytes % % Monocytes % % Eosinophils % % Basophils % % Neutrophils # (1.3-7.7) k/uL Lymphocytes # (1.0-4.8) k/uL Monocytes # (0-1.0) k/uL Eosinophils # (0-0.7) k/uL Basophils # (0-0.2) k/uL Hypochromasia PT (10.0-12.5) sec INR (<1.2) APTT (22.0-30.0) sec Sodium (137-145) mmol/L Potassium (3.5-5.1) mmol/L Chloride (98-107) mmol/L Carbon Dioxide (22-30) mmol/L Anion Gap mmol/L BUN (7-17) mg/dL Creatinine (0.52-1.04) mg/dL Est GFR (CKD-EPI)AfAm (>60 ml/min/1.73 sqM) Est GFR (CKD-EPI)NonAf (>60 ml/min/1.73 sqM) Glucose (74-99) mg/dL Calcium (8.4-10.2) mg/dL Magnesium (1.6-2.3) mg/dL Total Bilirubin (0.2-1.3) mg/dL AST (14-36) U/L ALT (4-34) U/L Alkaline Phosphatase (38-126) U/L Troponin I <0.012 (0.000-0.034) ng/mL NT-Pro-B Natriuret Pep pg/mL Total Protein (6.3-8.2) g/dL Albumin (3.5-5.0) g/dL Disposition <Marion Silverman - Last Filed: 07/18/24 14:21> Is patient prescribed a controlled substance at d/c from ED?: No Time of Disposition: 18:55 <Rio Julian - Last Filed: 07/18/24 18:55> Clinical Impression: Pneumonia Disposition: HOME SELF-CARE Condition: Good Instructions (If sedation given, give patient instructions): Bacterial Pneumonia (ED) Prescriptions: Azithromycin [Zithromax Tri-Khadar (3 tabs)] 500 mg PO DAILY 3 Days #3 tab Referrals: Edmond Coughlin DO [Primary Care Provider] - 1-2 days
--- NOTE | 2024-07-18 14:48 | XR ---
EXAMINATION TYPE: XR chest 2V DATE OF EXAM: 07/18/2024 COMPARISON: 06/30/2016 HISTORY: SOB TECHNIQUE: Frontal and lateral views of the chest are obtained. FINDINGS: There is been interval development of a large focal opacity in the left upper lobe measuring approxim ately 7 cm. Second right upper lobe focal opacity measures approximately 3 cm. There is diffuse inter stitial density within the right lung and there is a small to moderate right pleural effusion. A small left apical pneumothorax cannot be excluded with this technique. The heart size is normal. The osseous structures are grossly intact. IMPRESSION: 1. Interval development of marked acute cardiopulmonary disease and possible upper lobe lung masses. 2. Cannot exclude left apical pneumothorax. 3. CT chest is recommended for further evaluation. [facility], , 07/18/2024 2:46 PM
[2024-07-18 14:52] LABS: Basophils % (A) 1 %; Eosinophils # (A) 0.1 k/uL (0-0.7); Eosinophils % (A) 2 %; HGB 13.2 gm/dL (11.4-16.0); Hypochromasia Slight; Lymphocytes % (A) 17 %; MCH 29.3 pg (25.0-35.0); MCHC 30.7 g/dL (31.0-37.0); MCV 95.7 fL (80.0-100.0); Mean Platelet Volume 7.7; Monocytes # (A) 0.3 k/uL (0-1.0); Monocytes % (A) 5 %; Neutrophils # (A) 4.1 k/uL (1.3-7.7); Neutrophils % (A) 72 %; Platelet Count 307 k/uL (150-450); RBC 4.49 m/uL (3.80-5.40); RDW 14.9 % (11.5-15.5); WBC 5.6 k/uL (3.8-10.6)
[2024-07-18 15:22] LABS: ALT 10 U/L (4-34); AST 25 U/L (14-36); African American GFR (CKD) >90 (>60 ml/min/1.73 sqM); Albumin 4.1 g/dL (3.5-5.0); Alkaline Phosphatase 110 U/L (38-126); Anion Gap 8 mmol/L; Blood Urea Nitrogen 12 mg/dL (7-17); Calcium 8.8 mg/dL (8.4-10.2); Carbon Dioxide 25 mmol/L (22-30); Chloride 104 mmol/L (98-107); Glucose 92 mg/dL (74-99); Magnesium 2.2 mg/dL (1.6-2.3); Non-African American GFR(CKD) 87 (>60 ml/min/1.73 sqM); Potassium 4.6 mmol/L (3.5-5.1); Sodium 137 mmol/L (137-145); Total Bilirubin 0.6 mg/dL (0.2-1.3); Total Protein 7.3 g/dL (6.3-8.2)
[2024-07-18 15:27] LABS: INR 0.9 (<1.2); Partial Thromboplastin Time 22.2 sec (22.0-30.0)
[2024-07-18 15:30] LABS: NT-Pro-B-Type Natriuretic Pept 839 pg/mL
[2024-07-18] MEDS ORDERED: RX INFO: IV CONTRAST WAS GIVEN 1 EACH MISC MISCELLANE PRN (16:32)
--- NOTE | 2024-07-18 17:50 | CT ---
EXAMINATION TYPE: CT chest w con DATE OF EXAM: 07/18/2024 COMPARISON: 05/23/2023 HISTORY: -Year-old female difficulty breathing, SOB TECHNIQUE: Contiguous axial scanning of the chest after the administration of 80cc mL of Isovue 370. Coronal/sagittal reconstructions performed. CT DLP: 185.6mGycm. Automatic exposure control utilized for a dose reduction. FINDINGS: The heart is normal size of pericardial effusion. Pacer leads are present. Ectatic ascending aorta at 3.9 cm. Mild to moderate atherosclerotic arch calcifications with borderli ne configuration to the aortic arch. Right hilar lymph node measuring 1.0 cm nonspecific. Advanced emphysema is redemonstrated. There is debris and endobronchial opacification within the righ t lower lobe and more distal bronchi. New moderate right pleural effusion with adjacent atelectasis. Patient's posterior left upper lobe mass enlarged at 6.0 cm wide versus 4.1 cm, previously. Previous small posterior right upper lobe nodule as considerably enlarged now 3.0 cm. There are numerous new nodules bilaterally throughout the lungs, next largest measuring 2.1 cm anteri or left midlung and 1.7 cm lateral right base. There are some concurrent scattered tree-in-bud nodularity and patchy opacities which is at the left base and right lower lobe. Biapical pleural parenchymal scarring. Left apical bulla. Small to moderate sized hiatal hernia. Partially imaged infrarenal AAA measuring up to 4.0 cm versus 3.8 cm, previously. Right-sided fatty Bochdalek hernia noted. Bones: No osseous destructive process seen. IMPRESSION: 1. Interval disease progression. The patient's posterior left upper lobe mass now 6.0 cm versus 4.1 c m, previously. Previous small right upper lobe nodule now 3.0 cm. Numerous additional new nodules are present measuring up to 2.1 cm bilaterally. 2. New moderate right pleural effusion with adjacent atelectasis. There is concurrent tree-in-bud and patchy opacity particularly at the lower lobe which may reflect an infectious or aspiration pneumoni tis. 3. Infrarenal AAA partially visualized. Measuring up to 4.0 cm now versus 3.8 cm, previously. 4. Small to moderate-sized hiatal hernia. [facility], , 07/18/2024 5:48 PM
[2024-07-18] MEDS: cefTRIAXone IN SWFI 1,000 MG/10 ML SYRINGE IVP STA (18:50)
[2024-07-18] MEDS: AZITHROMYCIN 500 MG TAB PO STA (18:50)
[2024-07-18 19:12] VITALS: BP 138/74; PULSE 70; RESP 16; TEMP 98
== END 2024-07-18 19:11 | disposition home or self-care (01) ==
LOC: EC 13:48
CPT/HCPCS: 36415; 71046; 71260; 80053; 83735; 83880; 84484; 85025; 85610; 85730; 93005; 96374; 99285